=== PATIENT | male | born 1985 | race Caucasian/White ===

== ENCOUNTER 2020-06-27 12:30 | Emergency (ER) | payer OTHER, SELFPAY ==
[~2020-06-27] VITALS: Ht 188 cm; Wt 86.6 kg
[2020-06-27 12:40] VITALS: Ht 188 cm; Wt 86.6 kg
[2020-06-27 14:01] LABS: BASOPHIL % 0.5 % (0-2); PLATELET COUNT 242 x10^3mcL (130-400); RED CELL DISTRIBUTION WIDTH 13.4 % (11.5-14.5)
[2020-06-27 14:06] LABS: ALKALINE PHOSPHATASE 65 U/L (46-116); ALT/SGPT 34 U/L (16-63); AST/SGOT 28 U/L (15-37); BILIRUBIN TOTAL 1.7 mg/dL (0.20-1.00); CALCIUM 8.5 mg/dL (8.5-10.1); CARBON DIOXIDE 32.4 mmol/L (21-32); CHLORIDE SERUM 102 mmol/L (98-107); CREATININE SERUM 1.2 mg/dL (0.7-1.3); GFR1 > 60 mL/min; GLUCOSE SERUM 109 mg/dL (74-106); LIPASE 124 IU/L (73-393); SODIUM SERUM 142 mmol/L (136-145); TOTAL PROTEIN, SERUM 7.2 g/dL (6.4-8.2)
[2020-06-27 14:08] LABS: POTASSIUM SERUM 2.9 mmol/L (3.5-5.1)
[2020-06-27 18:25] VITALS: BP 110/78
== END 2020-06-27 18:25 | disposition home or self-care (01) ==
LOC: ED 12:30
PROVIDERS: Emergency Medicine
DX: E87.6 Hypokalemia (principal); K29.70 Gastritis, unspecified, without bleeding; Z20.828 Contact with and (suspected) exposure to other viral communicable diseases
CPT/HCPCS: J2270; J2405; J3475; J3480; J3490; J7030; J7040; U0003-CS

== ENCOUNTER 2020-11-03 11:44 | Emergency (ER) | payer OTHER ==
[~2020-11-03] VITALS: Ht 188 cm; Wt 88.5 kg
[2020-11-03 11:51] VITALS: Ht 188 cm; Wt 88.5 kg
[2020-11-03 13:01] LABS: BASOPHIL % 0.5 % (0.2-1.5); PLATELET COUNT 272 x10^3mcL (152-348); RED CELL DISTRIBUTION WIDTH 13.4 % (12.1-16.2)
[2020-11-03 13:50] LABS: CALCIUM 9.7 mg/dL (8.5-10.1); CHLORIDE SERUM 104 mmol/L (98-107); CREATININE SERUM 1.1 mg/dL (0.7-1.3); GFR1 > 60 mL/min; GLUCOSE SERUM 126 mg/dL (74-106); POTASSIUM SERUM 4.2 mmol/L (3.5-5.1); SODIUM SERUM 142 mmol/L (136-145)
[2020-11-03 13:54] LABS: ALBUMIN 4.5 g/dL (3.4-5.0); ALKALINE PHOSPHATASE 82 U/L (46-116); ALT/SGPT 24 U/L (16-63); AST/SGOT 13 U/L (15-37); BILIRUBIN TOTAL 0.54 mg/dL (0.20-1.00); LIPASE 130 IU/L (73-393); TOTAL PROTEIN, SERUM 8.2 g/dL (6.4-8.2)
[2020-11-03 15:45] VITALS: BP 129/71
== END 2020-11-03 15:45 | disposition home or self-care (01) ==
LOC: ED 11:44
PROVIDERS: Emergency Medicine
DX: F12.99 Cannabis use, unspecified with unspecified cannabis-induced disorder (principal); R11.10 Vomiting, unspecified
CPT/HCPCS: J1630; J2270; J2405; J7030

== ENCOUNTER 2020-12-23 10:43 | Emergency (ER) | payer OTHER ==
[~2020-12-23] VITALS: Ht 188 cm; Wt 85.3 kg
[2020-12-23 10:58] VITALS: Ht 188 cm; Wt 85.3 kg
[2020-12-23 12:12] LABS: BASOPHIL % 0.5 % (0.2-1.5); PLATELET COUNT 262 x10^3mcL (152-348); RED CELL DISTRIBUTION WIDTH 14.2 % (12.1-16.2)
[2020-12-23 12:43] LABS: CARBON DIOXIDE 27.4 mmol/L (21-32); CHLORIDE SERUM 107 mmol/L (98-107); CREATININE SERUM 1.1 mg/dL (0.7-1.3); GFR1 > 60 mL/min; GLUCOSE SERUM 143 mg/dL (74-106); POTASSIUM SERUM 4.5 mmol/L (3.5-5.1); SODIUM SERUM 144 mmol/L (136-145)
[2020-12-23 12:46] LABS: ALBUMIN 4.2 g/dL (3.4-5.0); ALKALINE PHOSPHATASE 70 U/L (46-116); ALT/SGPT 23 U/L (16-63); AMYLASE 49 U/L (25-115); AST/SGOT 12 U/L (15-37); BILIRUBIN TOTAL 0.56 mg/dL (0.20-1.00); LIPASE 158 IU/L (73-393); TOTAL PROTEIN, SERUM 7.7 g/dL (6.4-8.2)
[2020-12-23 14:29] VITALS: BP 139/87
== END 2020-12-23 14:29 | disposition home or self-care (01) ==
LOC: ED 10:43
PROVIDERS: Specialist
DX: R10.816 Epigastric abdominal tenderness (principal); F12.188 Cannabis abuse with other cannabis-induced disorder
CPT/HCPCS: J1630; J2405; J3490; J7030